=== PATIENT | male | born 1940 | race Caucasian/White ===

== ENCOUNTER 2025-09-24 17:54 | Inpatient (IN) | payer OTHER ==
[~2025-09-24] VITALS: Ht 182.9 cm; Wt 77.2 kg
[~2025-09-24 17:54] MED LIST: Aspir-Trin325 MG PO; FINA5 PO; IBUP600 PO; Norco 5-325 Ta1 EACH PO
[2025-09-24 19:09] LABS: BASOPHILS ABSOLUTE AUTO 0.07 K/mm3 (0.00-0.23); BASOPHILS PERCENT AUTO 1 % (0-2); EOSINOPHILS ABSOLUTE AUTO 0.04 K/mm3 (0.00-0.68); EOSINOPHILS PERCENT AUTO 0 % (0-6); Hematocrit 42.0 % (37.0-53.0); Hemoglobin 14.2 g/dL (13.5-17.5); IMMATURE GRAN ABSOLUTE AUTO 0.15 K/mm3 (0.00-0.10); IMMATURE GRAN PERCENT AUTO 1 % (0-1); LYMPHOCYTES ABSOLUTE AUTO 0.71 K/mm3 (0.84-5.20); LYMPHOCYTES PERCENT AUTO 5 % (21-46); MONOCYTES ABSOLUTE AUTO 1.31 K/mm3 (0.16-1.47); MONOCYTES PERCENT AUTO 9 % (4-13); Mean Corpuscular HGB Conc 33.8 g/dL (31.5-36.5); Mean Corpuscular Volume 115 fL (80-100); NEUTROPHILS ABSOLUTE AUTO 12.42 K/mm3 (1.96-9.15); NEUTROPHILS PERCENT AUTO 85 % (41-73); NRBC ABSOLUTE 0.00 K/mm3 (0.00-0.02); NRBC Auto 0.0 /100 WBC (0.0-0.2); Platelet Count 637 K/mm3 (150-400); RDW Coefficient Variation 13.6 % (11.7-14.2); RDW Standard Deviation 59.5 fL (35.1-46.3)
[2025-09-24 19:32] LABS: Alanine Aminotransfer (ALT/SGP 81.0 U/L (12-78); Albumin, Blood 3.3 g/dL (3.4-5.0); Albumin/Globulin Ratio 0.7 (0.8-1.8); Anion Gap 10.0 mmol/L (3-11); Aspartate Aminotrans (AST/SGOT 84.0 U/L (12-37); Bilirubin, Total 0.8 mg/dL (0.1-1.0); Blood Urea Nitrogen 58.0 mg/dL (8-24); CO2, Blood 30.0 mmol/L (21-32); Calcium, Blood 10.5 mg/dL (8.5-10.1); Chloride, Blood 97.0 mmol/L (98-108); Creatinine, Blood 1.59 mg/dL (0.60-1.20); Globulin, Blood 4.8 g/dL (2.2-4.0); Glucose, Blood 157.0 mg/dL (70-99); Potassium, Blood 3.7 mmol/L (3.5-5.5); Sodium, Blood 133.0 mmol/L (136-145); Total Protein, Blood 8.1 g/dL (6.4-8.2)
[2025-09-24] MEDS ORDERED: Ipratropium/Albuterol SulF 2.5-0.5MG/3 ML Amp INH ONE (20:50)
[2025-09-24] MEDS ORDERED: NS 1,000 ML IV SCH ×2 (21:15→23:50)
[2025-09-25] MEDS ORDERED: Ondansetron HCl 2 MG / ML 2ML Vial IV PRN (00:30)
[2025-09-25] MEDS ORDERED: Ipratropium/Albuterol SulF 2.5-0.5MG/3 ML Amp INH PRN (00:30)
[2025-09-25] MEDS ORDERED: FLU VACC TS2025(65UP)/MF59C/PF 45 MCG/0.5 ML SYRINGE IM SCH (00:30)
[2025-09-25] MEDS ORDERED: CefTRIAXone Sodium 1,000 MG in NS 100 ML IV SCH (00:50)
[2025-09-25 01:21] LABS: Influenza A, PCR NEGATIVE (NEGATIVE); Influenza B, PCR NEGATIVE (NEGATIVE); Resp Syncytial Virus, PCR NEGATIVE (NEGATIVE); SARS-Cov-2 (COVID-19) PCR, MMC NEGATIVE (NEGATIVE)
[2025-09-25 01:37] LABS: Source, Urine Clean Catch
[2025-09-25 02:16] LABS: Bilirubin, Urine Neg (Neg); Glucose Qualitative, Urine Neg (Neg); Ketones, Urine Neg (Neg); Leukocyte Esterase, Urine Neg (Neg); Protein, Urine 2+ (Neg); Specific Gravity, Urine 1.015 (1.003-1.022); Urobilinogen, Urine NORM (Normal)
[2025-09-25 02:28] LABS: Color, Urine Yellow (P-Yellow)
[2025-09-25 02:29] LABS: Red Blood Cells, Urine 0-2 /hpf (0-2); White Blood Cells, Urine 0-2 /hpf (0-5)
[2025-09-25 04:00] VITALS: BP 101/75
[2025-09-25 04:06] LABS: BASOPHILS ABSOLUTE AUTO 0.05 K/mm3 (0.00-0.23); BASOPHILS PERCENT AUTO 0 % (0-2); EOSINOPHILS ABSOLUTE AUTO 0.05 K/mm3 (0.00-0.68); EOSINOPHILS PERCENT AUTO 0 % (0-6); Hematocrit 35.9 % (37.0-53.0); Hemoglobin 12.3 g/dL (13.5-17.5); IMMATURE GRAN ABSOLUTE AUTO 0.14 K/mm3 (0.00-0.10); IMMATURE GRAN PERCENT AUTO 1 % (0-1); LYMPHOCYTES ABSOLUTE AUTO 0.72 K/mm3 (0.84-5.20); LYMPHOCYTES PERCENT AUTO 6 % (21-46); MONOCYTES ABSOLUTE AUTO 1.30 K/mm3 (0.16-1.47); MONOCYTES PERCENT AUTO 11 % (4-13); Mean Corpuscular HGB Conc 34.3 g/dL (31.5-36.5); Mean Corpuscular Volume 118 fL (80-100); NEUTROPHILS ABSOLUTE AUTO 10.12 K/mm3 (1.96-9.15); NRBC ABSOLUTE 0.00 K/mm3 (0.00-0.02); NRBC Auto 0.0 /100 WBC (0.0-0.2); Platelet Count 565 K/mm3 (150-400); RDW Coefficient Variation 13.9 % (11.7-14.2); RDW Standard Deviation 60.9 fL (35.1-46.3)
[2025-09-25 05:14] LABS: NEUTROPHILS PERCENT AUTO 822 % (41-73)
--- NOTE | 2025-09-25 06:00 | NUR ---
PATIENT ADMIT FROM ER VIA STRETCHER, TRANSFERRED TO BED PER SELF, ALERT AND ORIENTED, VERY FORGETFUL AT TIMES, HARD OF HEARING, NONPRODUCTIVE COUGH, LUNGS DIMINISHED TO BASE, FINE CRACKLES THROUGHOUT, OXYGEN AT 6/L PER NASAL CANULA, DENIES PAIN, ABD SOFT, DENIES TENDERNESS, NPO STATUS EXPLAINED TO PATIENT, VOIDING PER URINAL, NEW IV STARTED PER CHARGE NURSE, CALL LIGHT IN REACH, BED IN LOW AND LOCKED POSITION, BED ALARM ON. WILL CONTINUE TO MONITOR
[2025-09-25 06:06] LABS: Alanine Aminotransfer (ALT/SGP 61.0 U/L (12-78); Albumin, Blood 2.6 g/dL (3.4-5.0); Albumin/Globulin Ratio 0.7 (0.8-1.8); Anion Gap 7.0 mmol/L (3-11); Aspartate Aminotrans (AST/SGOT 64.0 U/L (12-37); Bilirubin, Total 0.5 mg/dL (0.1-1.0); Blood Urea Nitrogen 52.0 mg/dL (8-24); CO2, Blood 29.0 mmol/L (21-32); Calcium, Blood 9.0 mg/dL (8.5-10.1); Chloride, Blood 104.0 mmol/L (98-108); Creatinine, Blood 1.45 mg/dL (0.60-1.20); Globulin, Blood 3.7 g/dL (2.2-4.0); Glucose, Blood 141.0 mg/dL (70-99); Potassium, Blood 3.6 mmol/L (3.5-5.5); Sodium, Blood 136.0 mmol/L (136-145); Total Protein, Blood 6.3 g/dL (6.4-8.2)
[2025-09-25 06:18] LABS: pH Blood Venous 7.21 (7.34-7.37)
[2025-09-25 07:25] VITALS: BP 128/73
[2025-09-25] MEDS ORDERED: Enoxaparin 40 MG/0.4 ML SYR SC SCH (09:00)
--- NOTE | 2025-09-25 10:00 | NUR ---
am note this rn assumed care at 0700. vital signs stable. sinustachycardia at 110. cpap on with a 6l bleed in and spo2 >90%. patient is alert and oriented x4. neuro is intact. perrla. patient is able to make needs known and uses call light appropriately. patient denies pain, chest pain/pressure or shortness of breath. patient lung sounds coarse with a moist expiratory wheeze throughout. see shift assessment for further detials. md villarreal in to discussed plan with patient. md ordered breathing treatments to be every 4 hours vs 6 hours, and to check vbg at 1300. patient agreed with this plan.
[2025-09-25 11:51] VITALS: BP 1250/59
[2025-09-25 13:34] LABS: pH Blood Venous 7.33 (7.34-7.37)
[2025-09-25] MEDS ORDERED: Ipratropium/Albuterol SulF 2.5-0.5MG/3 ML Amp INH SCH (15:20)
[2025-09-25 15:44] VITALS: BP 121/80
--- NOTE | 2025-09-25 16:46 | NUR ---
shift summary patient vital signs remain stable. patient on 3.5l nc and spo2 >90%. no acute changes this shift. plan remains up to date.
[2025-09-25 20:39] VITALS: BP 118/63
[2025-09-26] VITALS (9 sets, daily range): BP systolic 106–142; BP diastolic 57–87
--- NOTE | 2025-09-26 05:34 | NUR ---
SHIFT SUMMARY NO ACUTE EVENTS THIS SHIFT. PT REMAINED A/O, SLEPT THROUGH MOST OF THE NIGHT. INTERMITTENT DESATURATION INTO LOW 80'S. TITRATED OXYGEN ACCORDINGLY. BREATHING TXS ADMINISTERED ACCORDINGLY. AUDIBLE WHEEZES CONSISTENT T/O SHIFT. PT NOW ON BIPAP AND TOLERATING WELL. ON CONTINUOUS CARDIAC TELEMTRY, DENIED CHEST PAIN/PRESSURE. USING BEDSIDE URINAL WITH 1P ASSIST.
--- NOTE | 2025-09-26 06:04 | NUR ---
PT UNABLE TO VOID, BLADDER SCANNED, OVER 600 ML RETAINED. STRAIGHT CATHED. PHOTOGRAPHIC RESTORER CALLED TO INFORM THIS RN THAT PTS HR 140'S-180'S AND NOW IN AFIB. PT ASYMPTOMATIC. HR SLOWLY BACK DOWN INTO 110'S.
--- NOTE | 2025-09-26 09:02 | NUR ---
am note this rn assumed care at 0700. vital signs stable. tele sinus tachycardia 100s. patient is alert and oriented x4. neuro is intact. perrla. patient is able to make needs known and uses call light appropriately. patient denies pain, chest pain/pressure or shortness of breath. patient lung sounds are coarse and wheezy throughout. see shift assessment for further detials. morning care done this morning. dentures soaking at this time in room.
--- NOTE | 2025-09-26 11:49 | NUR ---
update-md rounding md villarreal in to see patient and discussed continue need of iv steriods and possible discharge on monday or once patient is able to get to 2l nc and have a home oxygen eval done. patient verbalized understanding. plan of care is up to date. this rn called patsy roach, and updated on plan of care.
--- NOTE | 2025-09-26 12:49 | NUR ---
PALLIATIVE CARE ATTEMPTED VISIT X 2: CONSULT RECEIVED FOR ADVANCED CARE PLANNING AND SYMPTOM MANAGEMENT. REVIEWED MEDICAL RECORD, DISCUSSED DURING CM MEETING AND SPOKE TO PRIMARY RN ABOUT CONCERNS PRIOR TO ATTEMTPED VISIT. 1215 VISIT #1 PT WAS GETTING EKG DUE TO EPISODE OF A-FIB. 1245 VISIT #2 PT WAS GOING TO THE BATHROOM AND ALSO HAD LUNCH WAITING FOR HIM. SPOKE TO NATHANAEL. SHE IS AT BEDSIDE. SHE IS AGREEABLE TO A VISIT. WILL ATTEMPT ANOTHER VISIT LATER TODAY.
[2025-09-26] MEDS ORDERED: TIOT18 INH (12:57)
[2025-09-26] MEDS ORDERED: STIOLTO RESPIMAT4 G1 INH (12:57)
[2025-09-26] MEDS ORDERED: ASMANEX HFA13 G4 INH (12:58)
[2025-09-26] MEDS ORDERED: ATOR20 PO (12:58)
[2025-09-26] MEDS ORDERED: HYDURE500 PO (12:59)
[2025-09-26] MEDS ORDERED: Lisinopril-Hct1 EAC4 PO (12:59)
[2025-09-26] MEDS ORDERED: AZIT250 PO (13:03)
[2025-09-26] MEDS ORDERED: IPRAT-ALBUT 0.5-3 ML INH (13:07)
[2025-09-26] MEDS ORDERED: PRED20 PO (13:08)
--- NOTE | 2025-09-26 18:04 | NUR ---
SHIFT SUMMARY patient neuro remains intact. vital remain stable. no acute changes this shift.
[2025-09-27] VITALS (31 sets, daily range): BP systolic 90–144; BP diastolic 53–104
--- NOTE | 2025-09-27 00:11 | NUR ---
UPDATE PATIENT VOIDED APPROX 300ML. URINE WAS SLIGHTLY PINK IN COLOR. RIM OF URINAL NOTED TO HAVE KARI RED BLOOD, WELL , TOILET. PATIENT REPORTS BLEEDING SINCE STRAIGHT CATH EARLIER IN MORNING. DR LUNA CALLED AND NOTIFIED. VITALS UNCHANGED. CBC ORDERED FOR AM.
[2025-09-27] MEDS ORDERED: Mometasone Furoate Inhaler 220 mcg 14 ACT INH SCH (00:15)
[2025-09-27 04:01] LABS: BASOPHILS ABSOLUTE AUTO 0.03 K/mm3 (0.00-0.23); BASOPHILS PERCENT AUTO 0 % (0-2); EOSINOPHILS ABSOLUTE AUTO 0.00 K/mm3 (0.00-0.68); EOSINOPHILS PERCENT AUTO 0 % (0-6); Hematocrit 37.4 % (37.0-53.0); Hemoglobin 12.3 g/dL (13.5-17.5); IMMATURE GRAN ABSOLUTE AUTO 0.27 K/mm3 (0.00-0.10); IMMATURE GRAN PERCENT AUTO 2 % (0-1); LYMPHOCYTES ABSOLUTE AUTO 0.66 K/mm3 (0.84-5.20); LYMPHOCYTES PERCENT AUTO 4 % (21-46); MONOCYTES ABSOLUTE AUTO 0.38 K/mm3 (0.16-1.47); MONOCYTES PERCENT AUTO 3 % (4-13); Mean Corpuscular HGB Conc 32.9 g/dL (31.5-36.5); Mean Corpuscular Volume 117 fL (80-100); NEUTROPHILS ABSOLUTE AUTO 13.51 K/mm3 (1.96-9.15); NEUTROPHILS PERCENT AUTO 91 % (41-73); NRBC ABSOLUTE 0.03 K/mm3 (0.00-0.02); NRBC Auto 0.2 /100 WBC (0.0-0.2); Platelet Count 666 K/mm3 (150-400); RDW Coefficient Variation 14.2 % (11.7-14.2); RDW Standard Deviation 61.8 fL (35.1-46.3)
--- NOTE | 2025-09-27 06:28 | NUR ---
SHIFT SUMMARY PATIENT A/OX4. PATIENT REMAINED ON SUPPLEMENTAL O2 OVERNIGHT. LS SCATTERED WHEEZES. NO LABORED BREATHING NOTED. PATIENT'S HR AND RR WOULD INCREASE WITH MINIMAL EXERTION. PATIENT AMBULATED TO RR X2 TO VOID W/O ISSUE. PATIENT C/O MID ABD BURNING PAIN, WHICH WAS FAMILIAR TO HIM "HEARTBURN." PROVIDER WAS NOTIFIED AND ORDERS RECEIVED. PATIENT REPORTS DECREASED PAIN AFTER RECEIVING TUMS. PT NAVI CPAP WELL, FREQUENTLY DESATTING TO MID 80'S D/T ISSUES WITH MASK SEAL. ADJUSTED MULTIPLE TIMES BUT WOULD STILL NOT SEAL PROPERLY. PATIENT SWITCHED OVER TO NC AT 4-6L/MIN LATER IN MORNING AND MAINTAINED NORMAL SATS. PATIENT HAD EPISODE OF HEMATURIA OVERNIGHT, RESIDENT WAS NOTIFIED. CBC WAS COMPLETED THIS MORNING AND H&H WNL. PATIENT ABLE TO MAKE HIS NEEDS KNOWN WITH CALL LIGHT. PLAN OF CARE ONGOING.
--- NOTE | 2025-09-27 12:53 | NUR ---
PT IS A&Ox4 AND ABLE TO MAKE NEEDS KNOWN. HE IS ON 2LNC W/O2 SATS > 90%. HE IS A SBA FOR AMBULATION. NO NEEDS OR CONCERNS NOTED @ THIS TIME. BED IN LOW POSITION, BED ALARM ON, CALL LIGHT AND PERSONAL BELONGINGS IN REACH.
[2025-09-27 14:01] LABS: Alanine Aminotransfer (ALT/SGP 79.0 U/L (12-78); Albumin, Blood 2.4 g/dL (3.4-5.0); Albumin/Globulin Ratio 0.6 (0.8-1.8); Anion Gap 8.0 mmol/L (3-11); Aspartate Aminotrans (AST/SGOT 81.0 U/L (12-37); Bilirubin, Total 0.4 mg/dL (0.1-1.0); Blood Urea Nitrogen 44.0 mg/dL (8-24); CO2, Blood 29.0 mmol/L (21-32); Calcium, Blood 10.3 mg/dL (8.5-10.1); Chloride, Blood 104.0 mmol/L (98-108); Creatinine, Blood 1.08 mg/dL (0.60-1.20); Globulin, Blood 4.0 g/dL (2.2-4.0); Glucose, Blood 149.0 mg/dL (70-99); Potassium, Blood 4.1 mmol/L (3.5-5.5); Sodium, Blood 137.0 mmol/L (136-145); Total Protein, Blood 6.4 g/dL (6.4-8.2)
--- NOTE | 2025-09-27 14:40 | NUR ---
REPORT FROM [facility]. PATEINT WILL GO TO ROOM 303. HE IS AO X 4. 2 IV SITES. NO SKIN ISSUES. HE IS WEARING A CPAP AT [facility]. HE LIVES WITH FAMILY MEMBERS. HOME O2 EVAL IS ORDERED FOR TOMORROW.
[2025-09-27] MEDS ORDERED: Diltiazem HCl 5 MG / ML 5ML Vial IV ONE ×2 (15:15→15:20)
[2025-09-27] MEDS ORDERED: Diltiazem HCl 5 MG / ML 5ML Vial IV PRN (15:30)
--- NOTE | 2025-09-27 16:06 | NUR ---
REPORT CALLED TO CONTRERAS @ 6111 FOR PT TO GO TO ROOM 303. PT TRANSFERRED TO ROOM 303 VIA WC. PT HR BECAME ELEVATED AND WOULD NOT COME DOWN. PT TRANSFERRED BACK TO [facility] VIA BED. EKG PERFORMED WHEN HE GOT BACK TO [facility] AND IT SHOWED THAT PT WAS IN A-FIB RVR. DILTIAZEM PUSH GIVEN PER EMAR. HR DID NOT BUDGE AND DR. ADRIAN WAS NOTIFIED AND ORDERED A DILTIAZEM GTT. DILTIAZEM GTT RUNNING PER EMAR. NO C/O SOB OR PALPITATIONS. NO OTHER NEEDS OR CONCERNS NOTED @ THIS TIME. BED IN LOW POSITION, BED ALARM ON, CALL LIGHT AND PERSONAL BELONGINGS IN REACH.
--- NOTE | 2025-09-27 17:02 | NUR ---
PALLIATIVE CARE VISIT: SPOKE TO DAUGHTER ADAIR ON THE PHONE . SHE IS CURRENTLY IN [place]. SHE HAS HER SON FARHANA WHO IS STAYING WITH HER MOM COMING OVER TO VISIT AND DISCUSS CONCERNS. MET WITH FARHANA IN PT ROOM. PT IS AGREEABLE TO ME TALKING WITH FARHANA ABOUT CONCERNS. FARHANA VOICED CONCERNS HIS GRANDPA IS NOT TAKING HIS COPD MEDICATIONS ORDERED IF AT ALL. WE DISCUSS BARRIERS AND SOME INCLUDE HIS GRANDPA FOCUSES CARING FOR HIS WHO HAS HAD A STROKE AND NEEDS CONSIDERABLE ASSISTANCE. PT IS ALSO DESCRIBED BEING STUBBORN. HE IS WORRIED HIS GRANDPA WILL NOT TAKE HIS MEDICATIONS APPROPRIATELY WHEN DISCHARGED AND WILL END UP BACK IN HOSPITAL SOON AFTER DISCHARGE. WE DISCUSSED SERVICES AVAILABLE TO PT. HE IS A AND IS FOLLOW[facility] A [facility] PROVID[facility]. PT IS NOT YET ESTABLISHED WITH PALLIATIVE CARE SERVICES. PT REPORTS HE IS 20% SERVICE CONNECTED DUE TO HEARING LOSS. PT STATES HE HAS BEEN ATTEMPTING TO GET HIS SERVICES INCREASED. RECOMMENDED PT SEEK OUT A ADVOCATE TO ASSIST WITH ADDRESSING HIS SERVICE CONNECTION. ALSO REQUESTED PERMISSION TO REFER TO [place] PALLI[facility] AND PT WAS AGREEABLE TO REFERRAL. PT HAS SON THAT LIVES WITH HIM BUT IS NOT ALWAYS AVAILABLE TO HELP WITH CARE NEEDS. ALL OTHER FAMILY LIVE OUT OF TOWN OR STATE. GOC: PT STATES HE HAS NOT COMPLETED AND ADVANCE DIRECTIVE OR POLST. HE DECLINES COMPLETING FORMS TODAY. HE STATES HE WILL COMPLETE THEM WHEN HE IS BETTER. DISCUSSED CODE STATUS, EDUCATED ON RISKS VS BENEFITS OF CPR VS DNR. PT WISHES TO REMAIN A FULL CODE AND IS OKAY WITH SHORT TERM ON A VENTILATOR BUT WOULD NOT WANT TO BE ON MAIL INSERTER VENTILATOR. SYMPTOMS: PT DENIES PAIN, NAUSEA, SOB, REPORTS RECENT DECREASED APPETITE BUT HAS HAD NO SIGNIFICANT WEIGHT LOSS. DENIES ANXIETY. PT STATES HE WILL USE OXYGEN IF NEEDED AT HOME. PT QUIT SMOKING YEARS AGO. HE DOES NOT HAVE ANY OTHER CONCERNS OR QUESTIONS AT THIS TIME. [facility].
[2025-09-28] VITALS (11 sets, daily range): BP systolic 91–130; BP diastolic 52–81
--- NOTE | 2025-09-28 00:35 | NUR ---
UPDATE IN ROOM FOR HOURLY ROUNDING. PATIENT NOTED TO BE IN SR. CARDIZEM INFUSING AT 5MG/HR - PLACED ON STANDBY. CONFIRMED PATIENT CONVERTED AT 0026 FROM AFIB TO SR. RATE 70-80'S. PATIENT ASLEEP.
[2025-09-28 03:48] LABS: BASOPHILS ABSOLUTE AUTO 0.03 K/mm3 (0.00-0.23); BASOPHILS PERCENT AUTO 0 % (0-2); EOSINOPHILS ABSOLUTE AUTO 0.00 K/mm3 (0.00-0.68); EOSINOPHILS PERCENT AUTO 0 % (0-6); Hematocrit 33.2 % (37.0-53.0); Hemoglobin 11.0 g/dL (13.5-17.5); IMMATURE GRAN ABSOLUTE AUTO 0.17 K/mm3 (0.00-0.10); IMMATURE GRAN PERCENT AUTO 1 % (0-1); LYMPHOCYTES ABSOLUTE AUTO 0.86 K/mm3 (0.84-5.20); LYMPHOCYTES PERCENT AUTO 6 % (21-46); MONOCYTES ABSOLUTE AUTO 0.47 K/mm3 (0.16-1.47); MONOCYTES PERCENT AUTO 3 % (4-13); Mean Corpuscular HGB Conc 33.1 g/dL (31.5-36.5); Mean Corpuscular Volume 118 fL (80-100); NEUTROPHILS ABSOLUTE AUTO 13.55 K/mm3 (1.96-9.15); NEUTROPHILS PERCENT AUTO 90 % (41-73); NRBC ABSOLUTE 0.00 K/mm3 (0.00-0.02); NRBC Auto 0.0 /100 WBC (0.0-0.2); Platelet Count 603 K/mm3 (150-400); RDW Coefficient Variation 14.3 % (11.7-14.2); RDW Standard Deviation 62.4 fL (35.1-46.3)
[2025-09-28 04:13] LABS: Alanine Aminotransfer (ALT/SGP 75.0 U/L (12-78); Albumin, Blood 2.1 g/dL (3.4-5.0); Albumin/Globulin Ratio 0.6 (0.8-1.8); Anion Gap 8.0 mmol/L (3-11); Aspartate Aminotrans (AST/SGOT 59.0 U/L (12-37); Bilirubin, Total 0.3 mg/dL (0.1-1.0); Blood Urea Nitrogen 50.0 mg/dL (8-24); CO2, Blood 32.0 mmol/L (21-32); Calcium, Blood 10.3 mg/dL (8.5-10.1); Chloride, Blood 104.0 mmol/L (98-108); Creatinine, Blood 1.29 mg/dL (0.60-1.20); Globulin, Blood 3.3 g/dL (2.2-4.0); Glucose, Blood 160.0 mg/dL (70-99); Magnesium, Blood 2.3 mg/dL (1.6-2.4); Potassium, Blood 4.5 mmol/L (3.5-5.5); Sodium, Blood 139.0 mmol/L (136-145); Total Protein, Blood 5.4 g/dL (6.4-8.2)
--- NOTE | 2025-09-28 06:35 | NUR ---
SHIFT SUMMARY PATIENT A/OX4. NO ACUTE EVENTS OVERNIGHT. CARDIZEM TITRATED FROM 10MG TO 5MG AND STOPPED AFTER PATIENT CONVERTED TO SR AT APPROX 0025 THIS MORNING. PATIENT WORE CPAP FOR PART OF NIGHT, BUT COULD NOT MAINTAIN NORMAL SATS EVEN WITH O2 BLEED IN. DISCUSSED WITH RT. PATIENT CHANGED BACK OVER TO OXYMASK AND DID BETTER. PATIENT SLEPT WELL. HR MAINTAINED <100. O2 DEMANDS INCREASE SIGNIFICANTLY WITH MINIMAL EXERTION, TITRATING UP TO 8-10L/MIN. PATIENT RECOVERS WITHIN A FEW MINUTES BACK TO PREVIOUS BASELINE. NO COMPLAINTS OF PAIN, CP/CHEST PRESSURE, NAUSEA, DIZZINESS. CARDIZEM REMAINS OFF AT THIS TIME. PLAN OF CARE ONGOING.
--- NOTE | 2025-09-28 10:29 | NUR ---
PT A&Ox4 AND ABLE TO MAKE NEEDS KNOWN. HE IS ON 2L OXY MASK W/O2 SATS > 90%. HE IS A SBA FOR AMBULATION. ECHO COMPLETED THIS SHIFT. NO NEEDS OR CONCERNS NOTED @ THIS TIME. BED IN LOW POSITION, CALL LIGHT AND PERSONAL BELONGINGS IN REACH.
[2025-09-28] MEDS ORDERED: Furosemide 10 MG / ML 2ML Vial IV SCH (13:00)
[2025-09-28] MEDS ORDERED: Ipratropium/Albuterol SulF 2.5-0.5MG/3 ML Amp INH SCH (13:20)
[2025-09-28] MEDS ORDERED: Budesonide 0.5 MG/2 ML RESP INH SCH (13:25)
[2025-09-28] MEDS ORDERED: Formoterol/Mometasone MDI 5/200 mcg 13 GM INH SCH (13:35)
--- NOTE | 2025-09-28 18:05 | NUR ---
CARDIOLOGY AND PULMONOLOGY SAW PT TODAY. NURSE RELAYED INFO FROM DOCTORS TO DAVID DELCID. NO NEEDS OR CONCERNS NOTED @ THIS TIME. BED IN LOW POSITION, CALL LIGHT AND PERSONAL BELONGINGS IN REACH.
[2025-09-28 18:35] LABS: Influenza A/2009-H1 Not Detected (NOT DETECT); SARS-Cov-2 (COVID-19), BioFire Not Detected (NOT DETECT)
[2025-09-28] MEDS ORDERED: NS 250 ML IV PRN (19:35)
[2025-09-29] VITALS (7 sets, daily range): BP systolic 114–137; BP diastolic 69–86
[2025-09-29 04:01] LABS: BASOPHILS ABSOLUTE AUTO 0.03 K/mm3 (0.00-0.23); BASOPHILS PERCENT AUTO 0 % (0-2); EOSINOPHILS ABSOLUTE AUTO 0.00 K/mm3 (0.00-0.68); EOSINOPHILS PERCENT AUTO 0 % (0-6); Hematocrit 37.0 % (37.0-53.0); Hemoglobin 12.2 g/dL (13.5-17.5); IMMATURE GRAN ABSOLUTE AUTO 0.12 K/mm3 (0.00-0.10); IMMATURE GRAN PERCENT AUTO 1 % (0-1); LYMPHOCYTES ABSOLUTE AUTO 0.86 K/mm3 (0.84-5.20); LYMPHOCYTES PERCENT AUTO 7 % (21-46); MONOCYTES ABSOLUTE AUTO 0.29 K/mm3 (0.16-1.47); MONOCYTES PERCENT AUTO 2 % (4-13); Mean Corpuscular HGB Conc 33.0 g/dL (31.5-36.5); Mean Corpuscular Volume 116 fL (80-100); NEUTROPHILS ABSOLUTE AUTO 11.90 K/mm3 (1.96-9.15); NEUTROPHILS PERCENT AUTO 90 % (41-73); NRBC ABSOLUTE 0.02 K/mm3 (0.00-0.02); NRBC Auto 0.2 /100 WBC (0.0-0.2); Platelet Count 648 K/mm3 (150-400); RDW Coefficient Variation 13.6 % (11.7-14.2); RDW Standard Deviation 59.3 fL (35.1-46.3)
[2025-09-29 04:30] LABS: Alanine Aminotransfer (ALT/SGP 80.0 U/L (12-78); Albumin, Blood 2.2 g/dL (3.4-5.0); Albumin/Globulin Ratio 0.6 (0.8-1.8); Anion Gap 8.0 mmol/L (3-11); Aspartate Aminotrans (AST/SGOT 47.0 U/L (12-37); Bilirubin, Total 0.4 mg/dL (0.1-1.0); Blood Urea Nitrogen 46.0 mg/dL (8-24); CO2, Blood 34.0 mmol/L (21-32); Calcium, Blood 10.2 mg/dL (8.5-10.1); Chloride, Blood 99.0 mmol/L (98-108); Creatinine, Blood 1.15 mg/dL (0.60-1.20); Globulin, Blood 3.5 g/dL (2.2-4.0); Glucose, Blood 184.0 mg/dL (70-99); Potassium, Blood 4.4 mmol/L (3.5-5.5); Sodium, Blood 137.0 mmol/L (136-145); Total Protein, Blood 5.7 g/dL (6.4-8.2)
--- NOTE | 2025-09-29 06:52 | NUR ---
SHIFT SUMMARY: PT IS A&OX4, [place], WEARS BILAT HEARING AIDES. PLEASANT AND COOPERATIVE WITH CARE. VSS ON 2L OXYGEN VIA OXYMASK. SR 80'S-90'S, HAVING PAC'S AND PVC'S. PT DOES HAVE A MOIST PRODUCTIVE COUGH. PT DENIES PAIN. PT TOLERATING A REGULAR DIET, POOR APPETITE. X1 ASSIST. PT VOIDING ADEQUATE AMOUNTS OF YELLOW URINE IN URINAL AT BEDSIDE. NO BM THIS SHIFT, NEEDS BOWEL CARE ORDERED. BED IN LOWEST POSITION, CALL LIGHT WITHIN REACH. CALLS APPROPRIATELY AND IS ABLE TO ADVOCATE NEEDS EFFECTIVELY. DROPLET PRECAUTIONS INITIATED FOR A POSITIVE ENTERO/RHINO VIRUS.
--- NOTE | 2025-09-29 08:38 | NUR ---
PALLIATIVE CARE NOTE: SENT REFERRAL TO [place] [facility]ALLIATIVE CARE. INCLUDED FACESHEET, H&P, CONSULT PROGRESS NOTES AND PALLIATIVE CARE NOTE.
--- NOTE | 2025-09-29 09:54 | NUR ---
MORNING NOTE: PERRY IS ALERT & ORIENTED X4 & COOPERATIVE WITH HIS CARE. SATTING >92% ON 2 LITERS VIA NASAL CANNULA. PERRY VITAL SIGNS STABLE, DENIED ANY PAIN THIS MORNING. IS TO GET IN THE SHOWER THIS MORNING & IV ANTIBIOTICS HAVE COMPLETED AND IS SALINE LOCKED. PERRY HAS CALL LIGHT WITHIN REACH, BED IN LOWEST LOCKED POSITION & STATING NOTHING ELSE IS NEEDED AT THIS TIME.
--- NOTE | 2025-09-29 15:06 | NUR ---
UPDATE: PERRY IS NOW MEDICAL WITH TELE STATUS & AWARE OF THAT. PERRY IS ALERT AND ORIENTED X4 & COOPERATIVE WITH HIS CARE. PERRY IS SATTING >92% ON OXIMASK. FAMILY AT BEDSDIE THROUGHOUT SHIFT.
--- NOTE | 2025-09-29 18:41 | NUR ---
shift summary nicholas is medical with tele status. is alert and oriented x4 & cooperative with his care, is able to make needs know. satting >92% on 2 liters via oxymask. nicholas is 1 person with front wheeled walker. family at bedside throughout the shift. aware that plan will be to continue steroids, start on eliquis po & possibly looking at discharge tomorrow or the next day. nicholas is in bed, wathcing tv, call light within reach, bed in lowest locked position & stating nothing else is needed at this time.
--- NOTE | 2025-09-29 21:17 | NUR ---
CALLED [facility]NA TO GIVE REPORT FOR PT TO TRANSFER TO MEDICAL FLOOR ROOM 353. PT WAS INFORMED OF TRANSFER. ALL PTS BELONGINGS WERE BROUGHT WITH THE PT TO TRANSFER. PT ALERT ORIENTED X 4 ABLE TO VERBALIZE NEEDS. PT INFORMED HIS FAMILY ABOUT THE TRANSFER.
[2025-09-30 00:17] VITALS: BP 119/68
[2025-09-30 04:12] VITALS: BP 121/74
--- NOTE | 2025-09-30 05:22 | NUR ---
SHIFT SUMMARY: PT AOX4 SBA/1PA UP TO USE THE URINAL. TOLERATING MEDICATONS WELL, MARLYN APPROPRAITELY AND ABLE TO MAKE NEEDS KNOWN. NO ACUTE OVERNIGHT EVENTS. PT IN BED RESTING, BED IN LOWEST POSITION, CALL LIGHT IN REACH. CONTINUING CARE.
[2025-09-30 06:35] LABS: BASOPHILS ABSOLUTE AUTO 0.02 K/mm3 (0.00-0.23); BASOPHILS PERCENT AUTO 0 % (0-2); EOSINOPHILS ABSOLUTE AUTO 0.00 K/mm3 (0.00-0.68); EOSINOPHILS PERCENT AUTO 0 % (0-6); Hematocrit 36.9 % (37.0-53.0); Hemoglobin 12.6 g/dL (13.5-17.5); IMMATURE GRAN ABSOLUTE AUTO 0.11 K/mm3 (0.00-0.10); IMMATURE GRAN PERCENT AUTO 1 % (0-1); LYMPHOCYTES ABSOLUTE AUTO 0.68 K/mm3 (0.84-5.20); LYMPHOCYTES PERCENT AUTO 5 % (21-46); MONOCYTES ABSOLUTE AUTO 0.40 K/mm3 (0.16-1.47); MONOCYTES PERCENT AUTO 3 % (4-13); Mean Corpuscular HGB Conc 34.1 g/dL (31.5-36.5); Mean Corpuscular Volume 114 fL (80-100); NEUTROPHILS ABSOLUTE AUTO 13.42 K/mm3 (1.96-9.15); NEUTROPHILS PERCENT AUTO 92 % (41-73); NRBC ABSOLUTE 0.02 K/mm3 (0.00-0.02); NRBC Auto 0.1 /100 WBC (0.0-0.2); Platelet Count 652 K/mm3 (150-400); RDW Coefficient Variation 13.5 % (11.7-14.2); RDW Standard Deviation 57.6 fL (35.1-46.3)
[2025-09-30 07:07] LABS: Anion Gap 7.0 mmol/L (3-11); Blood Urea Nitrogen 42.0 mg/dL (8-24); CO2, Blood 37.0 mmol/L (21-32); Calcium, Blood 9.7 mg/dL (8.5-10.1); Chloride, Blood 96.0 mmol/L (98-108); Creatinine, Blood 0.99 mg/dL (0.60-1.20); Glucose, Blood 156.0 mg/dL (70-99); Potassium, Blood 3.7 mmol/L (3.5-5.5); Sodium, Blood 136.0 mmol/L (136-145)
[2025-09-30 07:37] VITALS: BP 114/65
[2025-09-30 11:01] VITALS: BP 102/72
[2025-09-30] MEDS ORDERED: Tiotropium Bromide 2.5 MCG/ACT MIST INHAL (10 ACT/4 GM) INH SCH (12:50)
[2025-09-30 16:17] VITALS: BP 107/61
--- NOTE | 2025-09-30 19:25 | NUR ---
SUMMARY PT STARTED SHIFT AT 4.5 L OXIMASK AND ENDED SHIFT AT 2.5 L NASAL CANNULA. PT IS A MOUTH BREATHER AND PLACED ON OXIMASK LAST NIGHT. PT STANDING EDGE OF BED TO URINATE VIA URINAL. EATING AND DRINKING OK. NO EVENTS ON TELE. CONTINUES TO HAVE PRODUCTIVE COUGH.
[2025-09-30 20:15] VITALS: BP 103/55
[2025-10-01 00:02] VITALS: BP 118/65
[2025-10-01 03:29] VITALS: BP 116/74
--- NOTE | 2025-10-01 05:08 | NUR ---
SHIFT SUMMARY: PT AOX4, CALLS APPROPRAITELY AND ABLE TO MAKE NEEDS KNOWN. TOLERATING MEDICATIONS WELL. NO ACUTE OVERNIGHT EVENTS. HAS BEEN AMBULATING SBA TO THE RESTROOM. PT IN BED RESTING, BED IN LOWEST POSITION, CALL LIGHT IN REACH. CONTINUING CARE.
[2025-10-01 06:23] LABS: BASOPHILS ABSOLUTE AUTO 0.02 K/mm3 (0.00-0.23); BASOPHILS PERCENT AUTO 0 % (0-2); EOSINOPHILS ABSOLUTE AUTO 0.00 K/mm3 (0.00-0.68); EOSINOPHILS PERCENT AUTO 0 % (0-6); Hematocrit 37.8 % (37.0-53.0); Hemoglobin 12.8 g/dL (13.5-17.5); IMMATURE GRAN ABSOLUTE AUTO 0.15 K/mm3 (0.00-0.10); IMMATURE GRAN PERCENT AUTO 1 % (0-1); LYMPHOCYTES ABSOLUTE AUTO 0.86 K/mm3 (0.84-5.20); LYMPHOCYTES PERCENT AUTO 6 % (21-46); MONOCYTES ABSOLUTE AUTO 0.45 K/mm3 (0.16-1.47); MONOCYTES PERCENT AUTO 3 % (4-13); Mean Corpuscular HGB Conc 33.9 g/dL (31.5-36.5); Mean Corpuscular Volume 116 fL (80-100); NEUTROPHILS ABSOLUTE AUTO 14.24 K/mm3 (1.96-9.15); NEUTROPHILS PERCENT AUTO 91 % (41-73); NRBC ABSOLUTE 0.02 K/mm3 (0.00-0.02); NRBC Auto 0.1 /100 WBC (0.0-0.2); Platelet Count 671 K/mm3 (150-400); RDW Coefficient Variation 13.5 % (11.7-14.2); RDW Standard Deviation 57.9 fL (35.1-46.3)
[2025-10-01 07:01] LABS: Anion Gap 9.0 mmol/L (3-11); Blood Urea Nitrogen 45.0 mg/dL (8-24); CO2, Blood 33.0 mmol/L (21-32); Calcium, Blood 9.3 mg/dL (8.5-10.1); Chloride, Blood 97.0 mmol/L (98-108); Creatinine, Blood 1.05 mg/dL (0.60-1.20); Glucose, Blood 145.0 mg/dL (70-99); Potassium, Blood 3.8 mmol/L (3.5-5.5); Sodium, Blood 135.0 mmol/L (136-145)
[2025-10-01 08:07] VITALS: BP 121/64
[2025-10-01] MEDS ORDERED: ELIQUIS5 M2 PO (11:28)
[2025-10-01] MEDS ORDERED: AMOCLA875 PO (11:28)
[2025-10-01] MEDS ORDERED: DILTIAZEM 24HR240 M3 PO (11:30)
[2025-10-01] MEDS ORDERED: GUAI600T33 PO (11:31)
[2025-10-01] MEDS ORDERED: LISI10 PO (11:32)
[2025-10-01] MEDS ORDERED: Prednisone10 MG (11:36)
[2025-10-01] MEDS ORDERED: VISBIOME 112.51 EACH PO (11:41)
--- NOTE | 2025-10-01 17:33 | NUR ---
DISCHARGE NOTE PT EDUCATED ON DISCHARGE PACKET AND NEW PRESCRIPTIONS. DAUGHTER AT BEDSIDE. PRESCRIPTIONS FAXED TO [facility] ON [address]. PT AND DAUGHTER VERBALIZED NEW MEDICATION REGIMEN. ADVANCED DIRECTIVE PACKET GIVEN TO DAUGHTER TO REVIEW WITH PT UPON D/C. IV REMOVED. TELE DC'D. PT ESCORTED DOWN VIA WHEELCHAIR BY RN. MEHDI DROPPED OFF PORTABLE O2 TANK. ALL BELONGINGS GATHERED AND RETURNED TO PT. NO QUESTIONS OR CONCERNS PRIOR TO DC.
== END 2025-10-01 16:40 | disposition home health service (06) | DRG 193 ==
LOC: ER 17:54 → PCU 17:55 → MEDS 09-25 00:26 → PCU 09-25 02:33 → MEDS 09-27 14:50 → PCU 09-27 15:34 → MEDS 09-29 21:24
PROVIDERS: Family Medicine; Internal Medicine; Internal Medicine Critical Care Medicine; Student in an Organized Health Care Education/Training Program; ADMIT Internal Medicine
PROC: 5A09357 Assistance with Respiratory Ventilation, Less than 24 Consecutive Hours, Continuous Positive Airway Pressure (ICD-10-PCS; principal; 2025-09-25)
PROC: 3E03329 Introduction of Other Anti-infective into Peripheral Vein, Percutaneous Approach (ICD-10-PCS; 2025-09-25)
PROC: 3E02340 Introduction of Influenza Vaccine into Muscle, Percutaneous Approach (ICD-10-PCS; 2025-09-25)
DX: J12.89 Other viral pneumonia (principal); I50.31 Acute diastolic (congestive) heart failure; J96.01 Acute respiratory failure with hypoxia; J96.02 Acute respiratory failure with hypercapnia; J44.1 Chronic obstructive pulmonary disease with (acute) exacerbation; I47.10 Supraventricular tachycardia, unspecified; N17.9 Acute kidney failure, unspecified; J44.0 Chronic obstructive pulmonary disease with (acute) lower respiratory infection; I13.0 Hypertensive heart and chronic kidney disease with heart failure and stage 1 through stage 4 chronic kidney disease, or unspecified chronic kidney disease; E87.4 Mixed disorder of acid-base balance; E87.1 Hypo-osmolality and hyponatremia; I49.1 Atrial premature depolarization; E86.0 Dehydration; E87.6 Hypokalemia; J20.9 Acute bronchitis, unspecified; I48.0 Paroxysmal atrial fibrillation; N40.0 Benign prostatic hyperplasia without lower urinary tract symptoms; D63.1 Anemia in chronic kidney disease; D69.6 Thrombocytopenia, unspecified; N18.30 Chronic kidney disease, stage 3 unspecified; D72.829 Elevated white blood cell count, unspecified; R79.89 Other specified abnormal findings of blood chemistry; D75.839 Thrombocytosis, unspecified; B97.19 Other enterovirus as the cause of diseases classified elsewhere; Z23 Encounter for immunization; Z79.891 Long term (current) use of opiate analgesic; Z79.1 Long term (current) use of non-steroidal anti-inflammatories (NSAID); Z79.82 Long term (current) use of aspirin; Z87.891 Personal history of nicotine dependence; Z79.899 Other long term (current) drug therapy; Z98.890 Other specified postprocedural states; Z90.79 Acquired absence of other genital organ(s)
CPT/HCPCS: 0202U; 36415; 51702; 71046; 71260; 80048; 80053; 81001; 82803; 83605; 83735; 83880; 84484; 85025; 85379; 87070; 87205; 87637; 93005; 93010; 94640; 94660; 94664; 94760; 94761; 94762; 96360; 99285-25; A9270; C8929; J0456; J0696; J1650; J1938; J2405; J2919; J3480; J7030; J7050; J7512; Q9957; Q9967